=== PATIENT | male | born 1990 | race Caucasian/White ===

== ENCOUNTER 2018-10-16 19:53 | Emergency (ER) | payer OTHER ==
[~2018-10-16] VITALS: Ht 190.5 cm; Wt 70.8 kg
[~2018-10-16 19:53] MED LIST: ALBUTEROL2.5 MG/31 INH; NEBULIZER MISCELL; PREDNISONE 20 M20 M1 PO; PROAIR HFA8.5 GM INH
[2018-10-16] MEDS ORDERED: TRAMADOL 50 MG50 MG PO (21:13)
[2018-10-16] MEDS ORDERED: AMOXICILLIN 50500 MG PO (21:13)
[2018-10-16 21:25] VITALS: BP 151/77
== END 2018-10-16 21:25 | disposition home or self-care (01) ==
LOC: M.ERS 19:53
DX: K08.89 Other specified disorders of teeth and supporting structures (principal); F17.200 Nicotine dependence, unspecified, uncomplicated; N19 Unspecified kidney failure

== ENCOUNTER 2019-02-17 20:53 | Emergency (ER) | payer OTHER ==
[~2019-02-17] VITALS: Ht 185.4 cm; Wt 79.4 kg
[~2019-02-17 20:53] MED LIST changes: +AMOXICILLIN 50500 MG PO; +TRAMADOL 50 MG50 MG PO
[2019-02-17 22:09] VITALS: BP 129/72
== END 2019-02-17 22:12 | disposition home or self-care (01) ==
LOC: M.ERS 20:53
DX: R51 Headache (principal); R42 Dizziness and giddiness; H53.149 Visual discomfort, unspecified; F17.210 Nicotine dependence, cigarettes, uncomplicated

== ENCOUNTER 2019-06-27 22:54 | Emergency (ER) | payer OTHER ==
[~2019-06-27] VITALS: Ht 188 cm; Wt 79.4 kg
[2019-06-27] MEDS ORDERED: IBU600 MG PO (23:32)
[2019-06-27] MEDS ORDERED: NORCO 5-325 TA1 EAC1 PO (23:32)
[2019-06-28 00:15] VITALS: BP 139/66
== END 2019-06-28 00:21 | disposition home or self-care (01) ==
LOC: M.ERS 22:54
DX: S92.251A Displaced fracture of navicular [scaphoid] of right foot, initial encounter for closed fracture (principal); F17.210 Nicotine dependence, cigarettes, uncomplicated; X50.1XXA Overexertion from prolonged static or awkward postures, initial encounter; Y93.89 Activity, other specified; Y92.89 Other specified places as the place of occurrence of the external cause; Y99.8 Other external cause status

== ENCOUNTER 2020-07-07 14:01 | Emergency (ER) | payer OTHER ==
[~2020-07-07] VITALS: Ht 185.4 cm; Wt 68.0 kg
[~2020-07-07 14:01] MED LIST changes: +IBU600 MG PO; +NORCO 5-325 TA1 EAC1 PO
[2020-07-07] MEDS ORDERED: [UNRECOGNIZED DRUG - REMARK] (14:15)
[2020-07-07] MEDS ORDERED: FLEXERIL PO (15:25)
[2020-07-07] MEDS ORDERED: VENTOLIN HFA 1818 GM INH (15:25)
[2020-07-07] MEDS ORDERED: ONDANSETRON HCL4 M2 PO (15:25)
[2020-07-07 16:14] VITALS: BP 130/75
--- NOTE | 2020-07-08 10:04 | EKG ---
[place] [address] ELECTROCARDIOGRAM REPORT Name: ALEX KEANE Room: [facility]#: [id number] Admission: 07/07/20 Attend Phys: Discharge: 07/07/20 Date of : 86 Date of Service: 07/07/20 1525 Report #: [id number] THIS REPORT FOR: //name// [facility] ED Test Date: 2020-07-07 Test Time: 15:25:45 Pat Name: ALEX DIYA Department: Room: Gender: Ehs Manager: [facility] : 1990 Requested By: Tierney Anderson Order Number: [id number] MD: Francisco Javier Barahona Measurements Intervals [place] Rate: 61 P: 36 MN: 150 QRS: 53 QRSD: 97 T: 45 QT: 405 QTc: 408 Interpretive Statements Sinus rhythm ST elev, probable normal early repol pattern No previous ECG available for comparison Electronically Signed On 07-08-2020 10:04:14 PATIENT RELATIONS REPRESENTATIVE by Francisco Javier Barahona [email or web address] <ELECTRONICALLY SIGNED> By: Francisco Javier Barahona MD, LOCATED WITHIN [facility] 07/08/20 1004 1525 1525 Francisco Javier Barahona MD, FAC /EPI
== END 2020-07-07 16:14 | disposition home or self-care (01) ==
LOC: M.ERS 14:01
DX: B34.9 Viral infection, unspecified (principal); R07.89 Other chest pain; Z20.828 Contact with and (suspected) exposure to other viral communicable diseases; F17.210 Nicotine dependence, cigarettes, uncomplicated